=== PATIENT | male | born 1985 | race Two or more races ===

== ENCOUNTER 2020-12-13 10:51 | Inpatient (IN) | payer OTHER ==
[~2020-12-13] VITALS: Ht 162.6 cm; Wt 101.7 kg
--- NOTE | 2020-12-13 11:23 | NUR ---
report taken from WOJCIECH Le, care assumed at this time.
[2020-12-13] MEDS ORDERED: ALBUTEROL SULFATE 2.5 MG/3 ML NPPB ONE (11:30)
[2020-12-13] MEDS ORDERED: DEXAMETHASONE 4 MG TABLET PO ONE (11:30)
[2020-12-13] MEDS ORDERED: DEXAMETHASONE 4 MG TABLET ONE (11:48)
[2020-12-13] MEDS ORDERED: ALBUTEROL SULFATE 2.5MG/0.5ML ONE (11:49)
[2020-12-13] MEDS ORDERED: ALBUTEROL SULFATE 2.5 MG/3 ML ONE (11:58)
--- NOTE | 2020-12-13 11:59 | NUR ---
REPORT TO ONI WILLAMS
[2020-12-13 12:12] LABS: BASOPHILS % (AUTO) 2 % (0-1); EOSINOPHILS % (AUTO) 1 % (1-7); LYMPHOCYTES % (AUTO) 28 % (22-44); MEAN CORPUSCULAR HEMOGLOBIN 27.4 pg (27.5-34.5); MEAN PLATELET VOLUME 7.9 fL (7.4-10.4); MONOCYTES % (AUTO) 7 % (2-9); NEUTROPHILS % (AUTO) 62 % (42-75); PLATELET COUNT 365 x10^3/uL (130-400); RED BLOOD COUNT 5.02 x10^6/uL (4.38-5.82)
--- NOTE | 2020-12-13 12:13 | NUR ---
TASK RN: MEDICATED PER EMAR
[2020-12-13 12:25] LABS: ALBUMIN 3.1 g/dL (3.4-5.0); ANION GAP 9 mmol/L (5-15); CALCIUM 9.2 mg/dL (8.5-10.1); CHLORIDE 108 mmol/L (98-107); CREATININE 1.72 mg/dL (0.7-1.3)
[2020-12-13 12:43] LABS: TROPONIN I 0.191 ng/mL (0.000-0.045)
--- NOTE | 2020-12-13 12:50 | NUR ---
LAW NOTIFIED TROP 0.191
[2020-12-13] MEDS ORDERED: ASPIRIN 81 MG TABLET CHEW PO ONE (13:00)
[2020-12-13] MEDS ORDERED: ASPIRIN 81 MG TABLET CHEW ONE (13:16)
--- NOTE | 2020-12-13 13:24 | NUR ---
pt already took 81mg aspirin today, MD pena informed. instructed RN to administer 243mg baby aspirin at this time. pt a&o, resps even and unlabored, all monitors in place. sinus tach rate 90s on fibre composite technician. pt denies chest pain. pt updated with poc. awaiting admit orders and bed assignment.
--- NOTE | 2020-12-13 13:50 | NUR ---
PT PLACED ON OXYGEN AT 2L/MIN VIA NC PT WAS HYPOXIC WHILE SLEEPING AT 79%, SNORES DURING SLEEP. WHEN AWAKENED, PT QUICKLY RETURNS TO SPO2 >95%. PT UNSURE IF HE HAS HX SLEEP APNEA. NO S/SX RESP DISTRESS WHILE AWAKE.
[2020-12-13] MEDS ORDERED: ISOS10TA2 PO (14:48)
[2020-12-13] MEDS ORDERED: INDO75CA3 PO (14:48)
[2020-12-13] MEDS ORDERED: ALLO100T30 PO (14:48)
[2020-12-13] MEDS ORDERED: ASPIRIN PO (14:48)
[2020-12-13] MEDS ORDERED: SPIR25TA5 PO (14:48)
[2020-12-13] MEDS ORDERED: ATOR40TA78 PO (14:48)
[2020-12-13] MEDS ORDERED: METO-95 PO (14:48)
[2020-12-13] MEDS ORDERED: COLC0.6T37 PO (14:48)
[2020-12-13] MEDS ORDERED: METF500T17 PO (14:48)
--- NOTE | 2020-12-13 14:49 | NUR ---
REPORT TO WOJCIECH STONE, PT TRANSPORTED TO [facility]. PT DENIES CHEST PAIN AT TIME OF TRANSPORT. PT A&O, RESPS EVEN AND UNLABORED, NSR ON MAINFRAME PROGRAMMER WITH NO ECTOPY. PT HAD NO DYSPNEA AT TIME OF TRANSPORT, SPEAKING IN FULL SENTENCES WITHOUT DIFFICULTLY.
--- NOTE | 2020-12-13 14:49 | NUR ---
WOJCIECH STONE AWARE OF HYPOXIA NOTED BRIEFLY DURING SLEEP, PT ON OXYGEN AT TIME OF TRANSPORT, SATURATING 100% ON 2L/MIN VIA NC. RESPS EVEN AND UNLABORED.
[2020-12-13 15:13] VITALS: BP 149/94
[2020-12-13 15:50] LABS: TROPONIN I 0.167 ng/mL (0.000-0.045)
[2020-12-13] MEDS: SODIUM CHLORIDE 0.9% 1,000 ML IV SCH (16:00)
[2020-12-13] MEDS ORDERED: ACETAMINOPHEN 325 MG TABLET PO PRN (16:00)
[2020-12-13] MEDS ORDERED: NITROGLYCERIN 0.4 MG BOTTLE (25 TABS) SL PRN (16:00)
[2020-12-13] MEDS ORDERED: ONDANSETRON 2MG/ML, 2ML IVPush PRN (16:00)
[2020-12-13] MEDS ORDERED: morphine SULFATE 10 MG/ML, 1ML IVPush PRN (16:00)
[2020-12-13] MEDS ORDERED: ONDANSETRON ODT 4 MG PO PRN (16:00)
[2020-12-13] MEDS: INSULIN LISPRO 100 UNITS/ML, PEN SQ-INSULIN SCH ×2 (16:00→21:31)
[2020-12-13] MEDS ORDERED: ALBUTEROL SULFATE 2.5 MG/3 ML NPPB PRN (16:30)
[2020-12-13] MEDS: HEPARIN 5,000 UNITS/ML, 1ML SQ SCH (16:58)
[2020-12-13] MEDS: METOPROLOL TARTRATE 50 MG TAB PO SCH (16:58)
[2020-12-13 20:21] VITALS: BP 143/91
[2020-12-13] MEDS ORDERED: ATORVASTATIN 40 MG TABLET PO SCH (21:00)
[2020-12-13] MEDS: ISOSORBIDE DINITRATE 10 MG TABLET PO SCH (21:30)
[2020-12-14] MEDS: HEPARIN 5,000 UNITS/ML, 1ML SQ SCH ×3 (00:17→16:00)
[2020-12-14 01:17] VITALS: BP 148/88
[2020-12-14] MEDS: METOPROLOL TARTRATE 50 MG TAB PO SCH (05:13)
[2020-12-14 05:47] LABS: BASOPHILS % (AUTO) 0 % (0-1); EOSINOPHILS % (AUTO) 0 % (1-7); LYMPHOCYTES % (AUTO) 8 % (22-44); MEAN CORPUSCULAR HEMOGLOBIN 26.9 pg (27.5-34.5); MEAN CORPUSCULAR HGB CONC 32.6 g/dL (33.2-36.2); MEAN PLATELET VOLUME 8.3 fL (7.4-10.4); MONOCYTES % (AUTO) 4 % (2-9); NEUTROPHILS % (AUTO) 88 % (42-75); PLATELET COUNT 380 x10^3/uL (130-400); RED BLOOD COUNT 4.97 x10^6/uL (4.38-5.82); RED CELL DISTRIBUTION WIDTH 13.9 % (9.4-14.8)
[2020-12-14 05:50] LABS: ANION GAP 10 mmol/L (5-15); CALCIUM 8.9 mg/dL (8.5-10.1); CHLORIDE 111 mmol/L (98-107)
[2020-12-14 07:00] VITALS: BP 149/96
[2020-12-14] MEDS: INSULIN LISPRO 100 UNITS/ML, PEN SQ-INSULIN SCH ×3 (08:35→16:00)
[2020-12-14] MEDS: ISOSORBIDE DINITRATE 10 MG TABLET PO SCH (08:36)
[2020-12-14] MEDS ORDERED: ASPIRIN 81 MG TABLET CHEW PO SCH (09:00)
[2020-12-14] MEDS ORDERED: SPIRONOLACTONE 25 MG TABLET PO SCH (09:00)
[2020-12-14] MEDS: SODIUM CHLORIDE 0.9% 1,000 ML IV SCH (12:00)
[2020-12-14 13:32] VITALS: BP 156/93
[2020-12-14] MEDS ORDERED: PRED20TA PO (14:20)
== END 2020-12-14 17:12 | disposition home or self-care (01) | DRG 202 ==
LOC: ED 12:57 → 5SO 13:41 → SUATTDRO 14:08
PROVIDERS: ADMIT Internal Medicine; ATTEND Family Medicine
DX: J45.21 Mild intermittent asthma with (acute) exacerbation (principal); I21.A1 Myocardial infarction type 2; I13.0 Hypertensive heart and chronic kidney disease with heart failure and stage 1 through stage 4 chronic kidney disease, or unspecified chronic kidney disease; D72.829 Elevated white blood cell count, unspecified; I25.10 Atherosclerotic heart disease of native coronary artery without angina pectoris; I48.0 Paroxysmal atrial fibrillation; I50.9 Heart failure, unspecified; M10.9 Gout, unspecified; T38.0X5A Adverse effect of glucocorticoids and synthetic analogues, initial encounter; E11.22 Type 2 diabetes mellitus with diabetic chronic kidney disease; N18.9 Chronic kidney disease, unspecified; E66.9 Obesity, unspecified; Z86.16 Personal history of COVID-19; Z87.891 Personal history of nicotine dependence; Z95.5 Presence of coronary angioplasty implant and graft; Z82.5 Family history of asthma and other chronic lower respiratory diseases; Z82.49 Family history of ischemic heart disease and other diseases of the circulatory system; Z83.3 Family history of diabetes mellitus; Z68.38 Body mass index [BMI] 38.0-38.9, adult
CPT/HCPCS: 36415; C8929; J7613; 71045; 80048; 82040; 82962; 83036; 83735; 83880; 84443; 84484; 85025; 93005; 99285; G0378; J1644; Q9957; J1815; J7030